=== PATIENT | male | born 1955 | race Caucasian/White ===

== ENCOUNTER 2017-01-22 13:25 | Observation (INO) | payer OTHER ==
[~2017-01-22] VITALS: Ht 175.3 cm; Wt 99.5 kg
[~2017-01-22 13:25] MED LIST: ACIT25CA PO; ALBU18HF IH; ATOR40TA59 PO; BACTOBAN; BISA5TAB4 PO; CEFP200T PO; CETI10TA22 PO; DILT180C29 PO; DOFE250C PO; DULO30CA2 PO; DULO60CA6 PO; ESOM40CA PO; FENO145T2 PO; FLUT1AER IH; GABA-586 PO; HYDR-2758 PO; LOSA50TA6 PO; MAGN400T22 PO; MONT10TA6 PO; MUPI22OI2 TP; NEBI10TA3 PO; NEOM10DR32 OU; POTA10TA10 PO; POTA20TA4 PO; PRED-220 PO; RIVA10TA PO; TIOT18CA IH; TORS20TA2 PO; TRAZ-90 PO; [UNRECOGNIZED DRUG - OTHER]; [UNRECOGNIZED DRUG - OTHER]; [UNRECOGNIZED DRUG - OTHER] NS
[2017-01-22] MEDS ORDERED: IV NORMAL SALINE 1,000ML 1,000 ML IV SCH (13:41)
[2017-01-22] MEDS ORDERED: 0.9 % SODIUM CHLORIDE 10 ML DISP.SYRIN. IV PRN (13:45)
[2017-01-22] MEDS ORDERED: ASPIRIN 325 MG TABLET PO ONE (14:00)
[2017-01-22 14:18] LABS: BASO # 0.1 x10^3/uL (0.0-0.2); BASO % 1 % (0-3); EOS % 0 % (0-3); HEMOGLOBIN 16.1 g/dL (13.0-17.5); LYMPH # 1.3 x10^3/uL (1.0-4.8); LYMPH % 11 % (24-48); MEAN CORPUSCULAR HEMOGLOBIN 29 pg (25-35); MEAN CORPUSCULAR HGB CONC 34 g/dL (31-37); MEAN CORPUSCULAR VOLUME 86 fL (79-100); MONO # 0.9 x10^3/uL (0.0-1.1); MONO % 8 % (0-9); NEUT # 9.3 x10^3uL (1.8-7.7); NEUT % 80 % (31-73); PLATELET COUNT 249 x10^3/uL (140-400); RED BLOOD COUNT 5.46 x10^6/uL (4.30-5.70); RED CELL DISTRIBUTION WIDTH 15.2 % (11.5-14.5); WHITE BLOOD COUNT 11.7 x10^3/uL (4.0-11.0)
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
[2017-01-22 14:38] LABS: ALBUMIN 3.8 g/dL (3.4-5.0); ALBUMIN/GLOBULIN RATIO 0.9 (1.0-1.7); CALCIUM 10.5 mg/dL (8.5-10.1); CREATININE 1.9 mg/dL (0.7-1.3); MAGNESIUM 1.6 mg/dL (1.8-2.4); POTASSIUM 3.4 mmol/L (3.5-5.1); TOTAL PROTEIN 8.1 g/dL (6.4-8.2)
--- NOTE | 2017-01-22 14:52 | EKG ---
[address] [address] Test Date: 2017-01-22 Test Time: 14:01:16 Pat Name: ROSY BORRERO Department: Room: Gender: [employer] Specialist: ZHANG : 1955 Requested By: DUKE PADILLA Order Number: [id number] Reading MD: Julian Cazares Measurements Intervals [place] Rate: 82 P: 59 LA: 164 QRS: 64 QRSD: 90 T: 64 QT: 366 QTc: 431 Interpretive Statements SINUS RHYTHM Electronically Signed On 01-26-2017 9:31:26 CDT by Julian Cazares
[2017-01-22] MEDS ORDERED: ONDANSETRON PF 4 MG/2 ML VIAL. IV PRN ×2 (15:15→16:15)
[2017-01-22] MEDS ORDERED: fentaNYL PF 100 MCG/2 ML VIAL IV PRN (15:15)
[2017-01-22] MEDS ORDERED: ACETAMINOPHEN 325 MG TABLET PO PRN ×2 (15:15→16:15)
--- NOTE | 2017-01-22 15:22 | RAD ---
Exam performed: 2 views of the chest. Indication: palpitations Date of Service:01/22/2017 3:41 PM . Comparison : One view chest from 05/12/16. Findings: PA and lateral radiographs of the chest reveal a normal cardiomediastinal contour. The lungs are hyperinflated, however clear. Bipolar pacemaker No pleural fluid is seen. Spondylotic changes involving the thoracic spine. Impression: No acute cardiopulmonary process seen. Emphysematous lungs.
--- NOTE | 2017-01-22 15:45 | ACF ---
Admission Criteria Forms ATRIAL FIBRILLATION Clinical Indications for Admission to Inpatient Care (Place 'X' for any and all applicable criteria): Admission indicated for ANY ONE of the following(1)(2)(3)(4)(5) : [ ]I. Myocardial ischemia [X]II. Dyspnea or hypoxemia [ ]III. Hemodynamic instability [ ]IV. Heart failure (e.g., pulmonary edema) (7) [ ]V. New-onset (less than 48 hours) atrial fibrillation with high risk for causing complications secondary to comorbidities (eg, symptomatic heart failure ) [ ]. Altered mental status [ ]VII. Syncope [ ]VIII. Patient has implantable cardioverter defibrillator that has fired more than once within past 24hr or needs immediate adjustment of settings that cannot be done other than in inpatient setting. (8) [ ]IX. Suspected accessory pathway (e.g., Uhifm-Ulogsjtau-Evudv syndrome) on ECG [ ]X. Recent systemic thromboembolism (eg, stroke) [ ]XI. Medication toxicity (e.g., digitalis) causing arrhythmia(9) [ ]XII. Underlying medical condition that necessitates inpatient care (e.g., thyrotoxicosis, pneumonia) (10) [ ]XIII. Continuous ECG monitoring is required for condition causing arrhythmia (e.g., severe hyperkalemia, hypokalemia, acid-base disturbance).(11)(12)(13) [ ]XIV. Initiation of antiarrhythmic drug therapy is needed in patient at high risk of adverse effects as indicated by ANY ONE of the following: [ ]a) Significant structural heart disease (e.g., reduced ejection fraction, congenital heart disease, valvular heart disease) [ ]b) Prolonged QT interval [ ]c) Underlying sinus node or atrioventricular conduction disturbances [ ]d) Need for treatment with antiarrhythmic drugs that have significant proarrhythmic potential (e.g., dofetilide, sotalol, procainamide) [ ]e) Patient whose sinus rhythm has never been observed on ECG [ ]XV. Intolerable symptoms despite optimal outpatient treatment [ ]XVI. Elective or urgent cardioversion that cannot be performed on outpatient basis or during observation care. [A] (Use also Atrial Fibrillation: Observation Care ) as appropriate.(14) [ ]XVII.Contraindications and/or Inappropriate clinical situations for Observational Care in patients with Atrial Fibrillation, when ANY ONE of the following is required: [ ]a) Patient with High risk of cardiac embolism (e.g, patients with previous cardiac embolism, LVEF < 40%, age >75 and patients with prosthetic valve) 18 [ ]b) Patient with Moderate risk including DM patient, CAD and patient aged 65-75 18 [ ]c) Patient with any change in cardiac biomarker especially troponin should be managed as high risk in an inpatient setting 19 [ ]d) Physician judgement irrespective of ECG and other diagnostic findings 20 [ ]XVIII.General contraindications and/or Inappropriate clinical situations for Observational Care in patients with Atrial Fibrillation, when ANY ONE of the following is required: [ ]a) Prediction of prolongation of LOS based on ANY ONE of the following may be considered as a contraindication for observational care 2, 3, 4, 5, 6, 7, 8, 9, 10, 11 [ ]i) Age > 65 yrs. [ ]ii) Patient arriving by ambulance [ ]iii) Patient with high acuity [ ]iv) Patient requiring vital sign monitoring [ ]v) Patient on IV medication [ ]b) Systolic blood pressures 180mmHg 3,12 [ ]c) Patient with altered mental status including delirium and other alteration of consciousness3 [ ]d) Patient whose discharge disposition will be to a [facility] home or rehabilitation home should not be managed in Emergency Department Observation Unit. CMS rule requires 3 days hospital stay before such placement.3,13 [ ]e) Patient with failure to thrive due to broad array of etiologies 3,16,17 [ ]f) Inability to ambulate 3,14 Extended stay beyond goal length of stay may be needed for (1)(25)(26): [ ]a) Unstable comorbidities [ ]b) Persistently uncontrolled atrial fibrillation or other arrhythmias [ ]c) Acute thromboembolic event (e.g., stroke, limb ischemia) [ ]d) Need for inpatient attainment of full anticoagulation The original [employer] content created by [employer] has been revised. The portions of the content which have been revised are identified through the use of italic text or in bold, and [employer] has neither reviewed nor approved the modified material. All other unmodified content is copyright [employer]. Please see references footnoted in the original [employer] edition 2016 Admission Criteria Met?: Yes LAMBERTO FIGUEROA January 22, 2017 15:45
[2017-01-22 16:31] VITALS: BP 164/83
[2017-01-22 16:37] VITALS: BP 154/82
[2017-01-22] MEDS ORDERED: POTA20TA82 PO ×2 (16:52)
[2017-01-22] MEDS ORDERED: AMIO200T2 PO (16:53)
[2017-01-22] MEDS ORDERED: DULO60CA6 PO (16:53)
[2017-01-22] MEDS ORDERED: CARV3.122 PO (16:54)
[2017-01-22] MEDS ORDERED: LISI-338 PO (16:55)
[2017-01-22] MEDS ORDERED: ZOLP10TA PO (16:56)
[2017-01-22] MEDS ORDERED: RIVA10TA PO (16:59)
[2017-01-22] MEDS ORDERED: CELE100C PO (17:02)
[2017-01-22] MEDS: AMIODARONE HCL 200 MG TABLET PO SCH (17:37)
[2017-01-22] MEDS: CARVEDILOL 3.125 MG TABLET PO SCH (17:38)
[2017-01-22 19:15] VITALS: BP 180/71
[2017-01-22 19:22] LABS: AMPHETAMINE/METHAMPHETAMINE NEG (NEG); BARBITURATES NEG (NEG); BENZODIAZEPINES NEG (NEG); CANNABINOIDS NEG (NEG); COCAINE NEG (NEG); METHADONE NEG (NEG); OPIATES NEG (NEG); PHENCYCLIDINE NEG (NEG)
[2017-01-22] MEDS ORDERED: MAGNESIUM SULFATE 2GM 50 ML IV ONE (20:00)
[2017-01-22] MEDS: GABAPENTIN 300 MG CAPSULE. PO SCH (20:09)
[2017-01-22] MEDS ORDERED: DOCUSATE SODIUM 100 MG CAPSULE PO ONE (20:30)
[2017-01-22 20:43] LABS: BILIRUBIN,URINE NEG (NEG); CLARITY,URINE HAZY; COLOR,URINE YELLOW; GLUCOSE,URINE NEG (NEG)
[2017-01-22 20:44] LABS: BACTERIA,URINE 0 /HPF (0-FEW); NITRITE,URINE NEG (NEG); UROBILINOGEN,URINE 0.2 mg/dL (0.2 mg/dL)
[2017-01-22 20:45] LABS: HYALINE CASTS, URINE MOD /HPF
[2017-01-22] MEDS ORDERED: RIVAROXABAN 10 MG TABLET. PO SCH (21:00)
[2017-01-22] MEDS ORDERED: ZOLPIDEM 10 MG TABLET. PO SCH (21:00)
[2017-01-22] MEDS ORDERED: FENOFIBRATE NANOCRYSTALLIZED 145 MG TABLET PO SCH (21:00)
[2017-01-22] MEDS ORDERED: MONTELUKAST 10 MG TABLET. PO SCH (21:00)
[2017-01-22] MEDS ORDERED: POTASSIUM CHLORIDE 20 MEQ TABLET.ER. PO SCH (21:00)
[2017-01-22 21:09] VITALS: BP 165/69
[2017-01-22 22:59] VITALS: BP 156/67
[2017-01-23] MEDS ORDERED: ATOR40TA59 PO (00:37)
[2017-01-23] MEDS ORDERED: ALBUTEROL SULFATE 8GM INHALER. IH PRN (00:45)
[2017-01-23] MEDS ORDERED: ALBUTEROL SULFATE 2.5 MG/3 ML NEBU. NEB PRN (01:00)
[2017-01-23 02:15] VITALS: BP 166/73
[2017-01-23 02:15] LABS: BASO # 0.1 x10^3/uL (0.0-0.2); BASO % 1 % (0-3); EOS # 0.1 x10^3/uL (0.0-0.7); EOS % 1 % (0-3); HEMATOCRIT 40.1 % (39.0-53.0); HEMOGLOBIN 13.8 g/dL (13.0-17.5); LYMPH # 1.3 x10^3/uL (1.0-4.8); LYMPH % 13 % (24-48); MEAN CORPUSCULAR HEMOGLOBIN 30 pg (25-35); MEAN CORPUSCULAR HGB CONC 35 g/dL (31-37); MEAN CORPUSCULAR VOLUME 86 fL (79-100); MONO # 0.9 x10^3/uL (0.0-1.1); MONO % 9 % (0-9); NEUT # 7.8 x10^3uL (1.8-7.7); NEUT % 77 % (31-73); PLATELET COUNT 196 x10^3/uL (140-400); RED BLOOD COUNT 4.67 x10^6/uL (4.30-5.70); RED CELL DISTRIBUTION WIDTH 15.3 % (11.5-14.5); WHITE BLOOD COUNT 10.1 x10^3/uL (4.0-11.0)
[2017-01-23 02:23] LABS: CALCIUM 10.1 mg/dL (8.5-10.1); CREATININE 1.8 mg/dL (0.7-1.3); GFR 38.3
[2017-01-23 05:15] VITALS: BP 177/62
[2017-01-23] MEDS ORDERED: PANTOPRAZOLE 40 MG TABLET. PO SCH (07:30)
[2017-01-23] MEDS ORDERED: POTASSIUM CHLORIDE 20 MEQ TABLET.ER. PO SCH ×2 (08:00)
[2017-01-23] MEDS: GABAPENTIN 300 MG CAPSULE. PO SCH (08:05)
[2017-01-23] MEDS: CARVEDILOL 3.125 MG TABLET PO SCH (08:06)
[2017-01-23] MEDS: AMIODARONE HCL 200 MG TABLET PO SCH (08:06)
[2017-01-23] MEDS ORDERED: CELECOXIB 100 MG CAPSULE PO SCH (09:00)
[2017-01-23] MEDS ORDERED: DULoxetine HCL 60 MG CAPSULE.DR PO SCH (09:00)
[2017-01-23] MEDS ORDERED: TORSEMIDE 20 MG TABLET. PO SCH (09:00)
[2017-01-23] MEDS ORDERED: LISINOPRIL 5 MG TABLET. PO SCH (09:00)
[2017-01-23] MEDS ORDERED: MAGNESIUM OXIDE 400 MG TABLET PO SCH (09:00)
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
--- NOTE | 2017-01-23 11:40 | RAD ---
Exam performed: Nuclear medicine ventilation/perfusion scan. Date of Service: 01/23/17. A chest x-ray performed on 01/22/17 was also reviewed. Clinical Indication: Elevated d-dimer, syncope, weakness, arrhythmia and shortness of breath. Chest tightness for 3 months. Discussion: Patient was administered 15.0 mCi of xenon-133 and images of the chest were obtained via the gamma camera during inspiration, equilibrium and washout phase. There is symmetric distribution of radiotracer throughout both lungs with symmetric excretion on washout images. Patient was also given 5.5 mCi of technetium 99 MAA and perfusion images of the chest are obtained in various projections. There is symmetric distribution of radiotracer without any photopenic area. No matched or mismatched abnormalities detected. Impression: 1. According to the PIOPED criteria, the study is negative for pulmonary embolism.
[2017-01-23 12:44] VITALS: BP 157/70
[2017-01-23] MEDS ORDERED: BISA5TAB4 PO (13:43)
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
[2017-01-23] MEDS ORDERED: ATORVASTATIN CALCIUM 20 MG TABLET PO SCH (21:00)
== END 2017-01-23 14:33 | disposition home or self-care (01) ==
LOC: ER 13:25 → ICU 15:15 → INTOOBSV 15:15
PROVIDERS: ADMIT Internal Medicine; ATTEND Internal Medicine
DX: I48.0 Paroxysmal atrial fibrillation (principal); I50.32 Chronic diastolic (congestive) heart failure; I27.2 Other secondary pulmonary hypertension; I25.10 Atherosclerotic heart disease of native coronary artery without angina pectoris; I11.0 Hypertensive heart disease with heart failure; E78.5 Hyperlipidemia, unspecified; E78.00 Pure hypercholesterolemia, unspecified; J44.9 Chronic obstructive pulmonary disease, unspecified; I35.0 Nonrheumatic aortic (valve) stenosis; E86.0 Dehydration; Z79.01 Long term (current) use of anticoagulants; Z96.643 Presence of artificial hip joint, bilateral; Z95.0 Presence of cardiac pacemaker; Z87.891 Personal history of nicotine dependence
CPT/HCPCS: 36415; 71020; 78582; 80048; 80053; 80061; 81001; 82553; 82947; 83690; 83735; 83880; 84443; 84484; 85027; 85379; 87086; 87641; 93005; 94640; 96374; A9540; A9558; G0378; G0379; G0481; J3475; J7613; 96361; 96365; 96366; 99285-25; J7030